=== PATIENT | female | born 1960 | race American Indian/Alaskan Native ===

== ENCOUNTER 2017-04-04 11:30 | Outpatient (CLI) | payer MEDICAID ==
--- NOTE | 2017-04-04 14:38 | Ultrasound Report ---
Pelvic ultrasound: Vaginal bleeding. Transabdominal and endovaginal imaging demonstrates an anteverted heterogeneous uterus that measures 3.2 x 4.3 x 6.4 cm. There is a circumscribed hypodensity in the anterior mid uterus measuring 12 mm. The endometrium is smooth and homogeneous with a diameter of 3 mm. The left ovary measures 3.4 cm and the right ovary measures 3.7 cm in greatest dimension. Both appear echogenically unremarkable. A small amount of free fluid is noted. Impressions: Small uterine fibroid. No endometrial pathology identified.
== END 2017-04-04 11:31 | disposition home or self-care (01) ==
LOC: US 11:30
DX: D25.9 Leiomyoma of uterus, unspecified (principal); N85.2 Hypertrophy of uterus
CPT/HCPCS: 76830; 76856

== ENCOUNTER 2018-01-30 13:36 | Emergency (ER) | payer MEDICAID ==
--- NOTE | 2018-01-30 19:18 | Emergency Department Report ---
ED CPR HPI - General Chief Complaint: Cardiac Arrest/CPR Stated Complaint: CARDIAC ARREST Time Seen by Provider: 01/30/18 14:45 Source: EMS Mode of arrival: Stretcher Limitations: Altered Mental Status - History of Present Illness Initial Comments: This is a 57-year-old female who arrives CPR in progress. She is resident of a [facility]. Medics tell me that she was found in asystole. She had not been seen for an unknown period of time. She had no signs of life whatsoever. She was somewhat mottled. Medics stated that they performed endotracheal intubation and encountered what they believed was "feces in her mouth". ACLS protocol was carried forth. The patient had no return of spontaneous circulation whatsoever. She arrived in asystole. MD Complaint: found unresponsive -: unknown Place: [facility] Initial Findings in the Field: systole (asystole no signs of life) ROSC in the Field: No Associated Injuries: No Treatments Prior to Arrival: intubation, epinephrine mgs # - Related Data Home Medications Medication Instructions Recorded Confirmed Last Taken Cholecalciferol (Vitamin D3) 5,000 unit PO DAILY 06/20/17 06/20/17 06/20/17 [Vitamin D3] Cyanocobalamin (Vitamin B-12) 500 mcg PO DAILY 06/20/17 06/20/17 06/20/17 [Vitamin B-12] Sennosides [Senna] 8.6 mg PO HS 06/20/17 06/20/17 06/20/17 ALBUTEROL Inhaler 2 puff IH PRN 06/21/17 06/21/17 Unknown Aspirin [Adult Low Dose Aspirin EC] 81 mg PO DAILY 06/21/17 06/21/17 06/20/17 Docusate Sodium [Colace CAP] 100 mg PO BID 06/21/17 06/21/17 06/20/17 Ferrous Sulfate [Iron] 325 mg PO DAILY 06/21/17 06/21/17 06/20/17 Hydrocortisone [Cortef TAB] 5 mg PO Q12H 06/21/17 06/21/17 06/20/17 Polyethylene Glycol/Elect 17 gram PO DAILY 06/21/17 06/21/17 06/20/17 Pravastatin Sodium [Pravachol] 40 mg PO DAILY 06/21/17 06/21/17 06/20/17 Previous Rx's Medication Instructions Recorded Last Taken Type Ibuprofen [Motrin] 600 mg PO Q8H PRN #30 tablet 06/23/17 Unknown Rx oxyCODONE /ACETAMINOPHEN [Percocet 1 tab PO Q6HR PRN #30 tablet 06/23/17 Unknown Rx 5/325] Levofloxacin [Levaquin] 750 mg PO QDAY #7 tablet 06/24/17 Unknown Rx metroNIDAZOLE [Flagyl] 500 mg PO Q8HR #24 tablet 06/24/17 Unknown Rx Allergies Allergy/AdvReac Type Severity Reaction Status Date / Time No Known Allergies Allergy Verified 01/30/18 13:38 ED Review of Systems ROS: Stated complaint: CARDIAC ARREST Other details as noted in HPI Comment: Unobtainable due to pts medical conditions ED Past Medical Hx - Past Medical History Hx Hypertension: Yes Hx Congestive Heart Failure: No Hx Diabetes: Yes Hx Asthma: Yes Hx COPD: No - Social History Smoking Status: Never Smoker - Medications Home Medications: Home Medications Medication Instructions Recorded Confirmed Last Taken Type Cholecalciferol (Vitamin D3) 5,000 unit PO DAILY 06/20/17 06/20/17 06/20/17 History [Vitamin D3] Cyanocobalamin (Vitamin B-12) 500 mcg PO DAILY 06/20/17 06/20/17 06/20/17 History [Vitamin B-12] Sennosides [Senna] 8.6 mg PO HS 06/20/17 06/20/17 06/20/17 History ALBUTEROL Inhaler 2 puff IH PRN 06/21/17 06/21/17 Unknown History Aspirin [Adult Low Dose Aspirin EC] 81 mg PO DAILY 06/21/17 06/21/17 06/20/17 History Docusate Sodium [Colace CAP] 100 mg PO BID 06/21/17 06/21/17 06/20/17 History Ferrous Sulfate [Iron] 325 mg PO DAILY 06/21/17 06/21/17 06/20/17 History Hydrocortisone [Cortef TAB] 5 mg PO Q12H 06/21/17 06/21/17 06/20/17 History Polyethylene Glycol/Elect 17 gram PO DAILY 06/21/17 06/21/17 06/20/17 History Pravastatin Sodium [Pravachol] 40 mg PO DAILY 06/21/17 06/21/17 06/20/17 History Ibuprofen [Motrin] 600 mg PO Q8H PRN #30 tablet 06/23/17 Unknown Rx oxyCODONE /ACETAMINOPHEN [Percocet 1 tab PO Q6HR PRN #30 tablet 06/23/17 Unknown Rx 5/325] Levofloxacin [Levaquin] 750 mg PO QDAY #7 tablet 06/24/17 Unknown Rx metroNIDAZOLE [Flagyl] 500 mg PO Q8HR #24 tablet 06/24/17 Unknown Rx ED Physical Exam - General Limitations: Other (apparently ) General appearance: other (mottled) - Head Head exam: Present: atraumatic - Eye Pupils: Present: other (fixed and dilated) - ENT ENT exam: Present: mucous membranes dry - Neck Neck exam: Present: normal inspection - Respiratory Respiratory exam: Present: other (breath sounds were not obviously present on the left but good air exchange on the right) - Cardiovascular Cardiovascular Exam: Present: other (normal heart sounds) - GI/Abdominal GI/Abdominal exam: Present: distended - Extremities Exam Extremities exam: Present: other (no acute injury suspected) - Skin Skin exam: Present: pallor (and mottled) ED Course - Reevaluation(s) Reevaluation #1: Patient was found in asystole. She is already had prolonged resuscitation. She is obviously on arrival. Further resuscitative efforts were deemed futile. The patient was pronounced. 01/30/18 19:17 Critical care attestation.: If time is entered above; I have spent that time in minutes in the direct care of this critically ill patient, excluding procedure time. ED Disposition Clinical Impression: Cardiac arrest Disposition: DC-20 Is pt being admited?: No Does the pt Need Aspirin: No Condition: Stable Referrals: PRIMARY CARE, [Primary Care Provider] - 3-5 Days Time of Disposition: 17:30
== END 2018-01-30 19:00 ==
LOC: ED 13:36
DX: I46.9 Cardiac arrest, cause unspecified (principal); I10 Essential (primary) hypertension; E11.9 Type 2 diabetes mellitus without complications; J45.909 Unspecified asthma, uncomplicated
CPT/HCPCS: 92950